=== PATIENT | male | born 1980 | race African-American/Black ===

== ENCOUNTER 2016-06-25 14:43 | Emergency (ER) | payer SELFPAY ==
[~2016-06-25] VITALS: Ht 180.3 cm; Wt 104.3 kg
[~2016-06-25 14:43] MED LIST: RANI150T6 PO
[2016-06-25 14:50] VITALS: BP 122/69
--- NOTE | 2016-06-25 15:20 | PHYS DOC ---
Past Medical History Past Medical History: No Pertinent History Past Surgical History: No Surgical History Alcohol Use: None Drug Use: None Adult General Chief Complaint Chief Complaint: LACERATION/AVULSION [facility] HPI Patient is a 35 year old male presents to the emergency department with 3 of cutting his right fifth finger while working on the vehicle. He states last tetanus was approximately one year ago. He denies any numbness or tingling into his finger bleeding is currently controlled at this time. He denies any injuries or complaints. Review of Systems Review of Systems Constitutional: Denies fever or chills [] Eyes: Denies change in visual acuity, redness, or eye pain [] HENT: Denies nasal congestion or sore throat [] Respiratory: Denies cough or shortness of breath [] Cardiovascular: No additional information not addressed in HPI [] Musculoskeletal: Denies back pain or joint pain [] Integument: Denies rash or skin lesions. Laceration to the right 5th finger Neurologic: Denies headache, focal weakness or sensory changes [] Current Medications Current Medications Current Medications Medications (Trade) Dose Ordered Sig/Joann Start Time Stop Time Status Last Admin Dose Admin Lidocaine/Sodium Bicarbonate (Buffered Lidocaine 1%) 20 ml 1X ONCE 06/25/16 15:30 06/25/16 15:31 DC 06/25/16 15:18 20 ML Allergies Allergies Allergies Coded Allergies Type Severity Reaction Last Updated Verified No Known Drug Allergies 09/04/14 No Physical Exam Physical Exam Constitutional: Well developed, well nourished, no acute distress, non-toxic appearance. [] HENT: Normocephalic, atraumatic, bilateral external ears normal, oropharynx moist, no oral exudates, nose normal. [] Eyes: PERRLA, EOMI, conjunctiva normal, no discharge. [] Neck: Normal range of motion, no tenderness, supple, no stridor. [] Cardiovascular:Heart rate regular rhythm Lungs & Thorax: No respiratory distress noted Skin: Warm, dry, no erythema, no rash. 2 cm laceration noted to the right lateral fifth finger. Bleeding is currently controlled. The wound is gaping. Back: No tenderness. [] Extremities: No tenderness, no cyanosis, no clubbing, ROM intact, no edema. [] Neurologic: Alert and oriented X 3, normal motor function, normal sensory function, no focal deficits noted. [] Psychologic: Affect normal, judgement normal, mood normal. [] Current Patient Data Vital Signs Vital Signs Date Time Temp Pulse Resp B/P Pulse Ox O2 Delivery O2 Flow Rate FiO2 06/25/16 14:50 98.7 66 16 97 Room Air 98.7 EKG EKG [] Radiology/Procedures Radiology/Procedures [] Course & Med Decision Making Course & Med Decision Making Pertinent Labs and Imaging studies reviewed. (See chart for details) Patient was provided with discharge instructions treatment regimen and followup recommendations. Signs and symptoms on infection provided. Signs and symptoms to return to the emergency department have been provided. Patient agrees with discharge instructions, treatment regimen and followup recommendations. [] Dragon Disclaimer Dragon Disclaimer This electronic medical record was generated, in whole or in part, using a voice recognition dictation system. Departure Departure Impression: Primary Impression: Laceration of finger of right hand Disposition: HOME, SELF-CARE Condition: STABLE Referrals: NO PCP (PCP) Patient Instructions: Laceration Care, Adult, [id number] Additional Instructions: Activity as tolerated Keep the finger clean and dry. Clean the site with soap and water and apply antibiotic ointment to the area twice a day. Watch for signs and symptoms of infection: Redness, warmth, tenderness or any yellow/greenish drainage of a come from the site. You may take Tylenol or ibuprofen for pain and discomfort. Ice packs may also help with pain and discomfort. Sutures out in the next 7-10 days. Follow-up to primary care physician in 7-10 days for suture removal. Return back to emergency prior signs symptoms of become worse. Laceration/Wound Repair Laceration/Wound Repair : Wound Location: upper extremity Wound's Depth, Shape: superficial Wound Length (cm): 2 Wound Explored: clean Betadine Prep?: Yes Anesthesia: 1% Lidocaine Volume Anesthetic (ccs): 2 Wound Debrided: minimal Wound Repaired With: sutures Suture Size/Type: 4:0, nylon Number of Sutures: 3 Progress Site was soaked for 20 minutes in soap and water. Digital block completed to the right 5th finger, area cleaned with betadine, 3 interrupted sutures placed Dressing applied by nursing staff. MAGDIEL PRUITT NP Jun 25, 2016 15:20
[2016-06-25] MEDS ORDERED: LIDOCAINE 1% / SOD BICARB 8.4% 20 ML VIAL. IJ ONE (15:30)
== END 2016-06-25 16:15 | disposition home or self-care (01) ==
LOC: ER 14:43
DX: S61.216A Laceration without foreign body of right little finger without damage to nail, initial encounter (principal); W26.9XXA Contact with unspecified sharp object(s), initial encounter; Y93.89 Activity, other specified; Y92.89 Other specified places as the place of occurrence of the external cause; Y99.8 Other external cause status
CPT/HCPCS: 12001; 99283-25

== ENCOUNTER 2017-11-24 16:05 | Emergency (ER) | payer SELFPAY | END 2017-11-24 17:26 | disposition home or self-care (01) | LOC: ER 16:05 | DX: M25.512 Pain in left shoulder (principal); V43.62XA Car passenger injured in collision with other type car in traffic accident, initial encounter; Y93.89 Activity, other specified; Y92.488 Other paved roadways as the place of occurrence of the external cause; Y99.8 Other external cause status | CPT/HCPCS: 73030; 99284 ==

== ENCOUNTER 2021-07-27 10:10 | Emergency (ER) | payer OTHER ==
[~2021-07-27] VITALS: Ht 180.3 cm; Wt 104.5 kg
[~2021-07-27 10:10] MED LIST changes: +CYCL5TAB PO; +RANI-376 PO; -RANI150T6 PO
[2021-07-27] MEDS ORDERED: HYDROcodone/APAP 5/325MG 1 TAB TABLET PO ONE (10:45)
--- NOTE | 2021-07-27 11:07 | RAD ---
XR RIBS MIN 3 VIEWS RT W/PA CHEST History: Trauma. Pain. Comparison: None. Technique: PA chest and 4 views of the right ribs. Findings: The lungs are adequately and symmectrically inflated. No airspace consolidation, pleural effusion or pneumothorax. The cardiomediastinal silhoutte and pulmonary vasculature are within normal limits. Sof t tissues and osseous structures are unremarkable. No rib fracture or lesion is identified. Impression: 1. No rib fracture or sequela identified. Electronically signed by: Gabriel Damico MD (07/27/2021 11:04 AM) [id number]
[2021-07-27 12:52] VITALS: BP 115/80
[2021-07-27] MEDS ORDERED: IBUP-1060 PO (12:53)
[2021-07-27] MEDS ORDERED: CYCL5TAB PO (12:53)
--- NOTE | 2021-07-27 12:54 | PHYS DOC ---
Past Medical History Past Medical History: No Pertinent History Additional Past Medical Histor: CHRONIC BACK PAIN Past Surgical History: No Surgical History Smoking Status: Never Smoker Alcohol Use: None Drug Use: None Adult General Chief Complaint Chief Complaint: RIB PAIN HPI HPI Patient is a 40 year old male who complains of right scapular pain. Patient states he was crushed between a pallet and a wall couple days ago and said discomfort since. He has pain with range of motion of the right shoulder but does not have discomfort when taking a deep breath nor does he feel short of breath. No chest pain anteriorly. No back pain, abdominal pain or other complaints at this time. Review of Systems Review of Systems Constitutional: Denies fever Eyes: Denies change in visual acuity or eye pain HENT: Denies sore throat Respiratory: Denies shortness of breath Cardiovascular: Denies chest pain GI: Denies abd pain : Denies dysuria Musculoskeletal: Denies back or extremity injury Integument: Denies rash or skin lesions Neurologic: Denies headache, focal weakness or sensory changes All other systems were reviewed and found to be within normal limits, except as documented in this note. Current Medications Current Medications Current Medications Medications (Trade) Dose Ordered Sig/Joann Start Time Stop Time Status Last Admin Dose Admin Acetaminophen/ Hydrocodone Bitart (Lortab 5/325) 2 tab 1X ONCE 07/27/21 10:45 07/27/21 10:46 DC 07/27/21 10:49 2 TAB Allergies Allergies Allergies Coded Allergies Type Severity Reaction Last Updated Verified No Known Drug Allergies 09/04/14 No Physical Exam Physical Exam Constitutional: Well developed, well nourished, no acute distress, non-toxic appearance. HENT: Normocephalic, atraumatic, bilateral external ears normal, mucosa moist, nose normal. Eyes: EOMI, conjunctiva normal, no discharge. Neck: Normal range of motion, supple, no stridor, no meningeal signs. Cardiovascular: Regular rate and rhythm Lungs & Thorax: Bilateral breath sounds clear to auscultation, tenderness on palpation of musculature covering right scapula Abdomen: Soft, no tenderness or obvious masses Skin: Warm, dry, no erythema, no rash. Extremities: No tenderness, no cyanosis, no clubbing, ROM intact, no edema. Neurologic: Alert and oriented, normal motor function, normal sensory function, no focal deficits noted. Psychologic: Affect normal, judgement normal, mood normal. Current Patient Data Vital Signs Vital Signs Date Time Temp Pulse Resp B/P (MAP) Pulse Ox O2 Delivery O2 Flow Rate FiO2 07/27/21 10:49 16 97 Room Air 07/27/21 10:19 98.1 71 142/92 (109) 98.1 EKG EKG [] Radiology/Procedures Radiology/Procedures [] Impressions: PATIENT: MISTER FRANCISCO TACCOUNT: [id number]#: [id number] : 1980 LOCATION: ER AGE: 40 SEX: M EXAM STATUS: PRE ER ORD. PHYSICIAN: HUBER BLANK MD REASON: trauma PROCEDURE: RIBS RIGHT AND PA CHEST XR RIBS MIN 3 VIEWS RT W/PA CHEST History: Trauma. Pain. Comparison: None. Technique: PA chest and 4 views of the right ribs. Findings: The lungs are adequately and symmectrically inflated. No airspace consolidation, pleural effusion or pneumothorax. The cardiomediastinal silhoutte and pulmonary vasculature are within normal limits. Soft tissues and osseous structures are unremarkable. No rib fracture or lesion is identified. Impression: 1. No rib fracture or sequela identified. Electronically signed by: Gabriel Damico MD (07/27/2021 11:04 AM) [id number] DICTATED and SIGNED BY: GABRIEL DAMICO MD DATE: 07/27/21 [id number] 0 Course & Med Decision Making Course & Med Decision Making Pertinent Labs and Imaging studies reviewed. (See chart for details) [] Is a 40-year-old male with right scapular pain after injury. X-rays are negative for evidence of a fracture or underlying lung injury. We will give the patient prescription for Motrin and have him follow-up with his primary care physician as needed, return to the emergency department if symptoms become worse or other concerns arise, he is stable for discharge. Dragon Disclaimer Dragon Disclaimer This electronic medical record was generated, in whole or in part, using a voice recognition dictation system. Departure Departure Impression: Primary Impression: Contusion of scapula, right Disposition: HOME / SELF CARE / HOMELESS Condition: STABLE Referrals: NO PCP (PCP) Patient Instructions: Thoracic Outlet Syndrome-Brief Scripts Ibuprofen (IBUPROFEN) 800 Mg Tablet 800 MG PO PRN TID PRN for PAIN, #30 TAB take with food or milk to avoid upsetting stomach Prov: HUBER BLANK MD 07/27/21 Cyclobenzaprine Hcl (CYCLOBENZAPRINE HCL) 5 Mg Tablet 5 MG PO PRN TID PRN for PAIN, #15 TAB Prov: HUBER BLANK MD 07/27/21 HUBER BLANK MD Jul 27, 2021 12:54
== END 2021-07-27 13:28 | disposition home or self-care (01) ==
LOC: ER 10:10
DX: S40.011A Contusion of right shoulder, initial encounter (principal); G89.29 Other chronic pain; W23.1XXA Caught, crushed, jammed, or pinched between stationary objects, initial encounter; Y93.89 Activity, other specified; Y92.89 Other specified places as the place of occurrence of the external cause; Y99.8 Other external cause status
CPT/HCPCS: 71101; 99283